=== PATIENT | male | born 1945 | race Caucasian/White ===

== ENCOUNTER 2018-12-29 09:11 | Emergency (ER) | payer MEDICARE ==
[2018-12-29 10:02] LABS: ADD MAN DIFF? NO
[2018-12-29 10:04] LABS: ABNORMAL IP MESSAGE 1; BASOPHILS % 0.3 % (0.0-2.0); EOSINOPHILS % 0.8 % (0.0-7.0); HEMATOCRIT 43.2 % (42.0-52.0); HEMOGLOBIN 13.9 g/dl (14.0-18.0); LYMPHOCYTES # 0.8 10^3/ul (0.8-2.9); LYMPHOCYTES % 20.4 % (15.0-51.0); MEAN CORPUSCULAR HEMOGLOBIN 25.1 pg (29.0-33.0); MEAN CORPUSCULAR HGB CONC 32.2 g/dl (32.0-37.0); MEAN CORPUSCULAR VOLUME 78.1 fl (82.0-101.0); MEAN PLATELET VOLUME 10.9 fl (7.4-10.4); MONOCYTE # 0.3 10^3/ul (0.3-0.9); MONOCYTES % 6.8 % (0.0-11.0); NEUTROPHIL # 2.9 10^3/ul (1.6-7.5); NEUTROPHILS % 71.4 % (39.0-77.0); PLATELET COUNT 99 10^3/UL (140-415); POSITIVE DIFF @See below; RED BLOOD COUNT 5.53 10^6/ul (4.70-6.10); RED CELL DISTRIBUTION WIDTH 14.2 % (11.5-14.5)
[2018-12-29 10:25] LABS: ANION GAP 13 (5-13); BLOOD UREA NITROGEN 17 mg/dl (7-20); CARBON DIOXIDE 28 mmol/L (21-31); CHLORIDE 100 mmol/L (97-110); CREATININE 0.96 mg/dl (0.61-1.24); GLUCOSE 175 mg/dl (70-220); POTASSIUM 4.4 mmol/L (3.5-5.1); SODIUM 141 mmol/L (135-144)
== END 2018-12-29 12:59 | disposition home or self-care (01) ==
LOC: E/R 09:11
DX: H53.2 Diplopia (principal); R40.2252 Coma scale, best verbal response, oriented, at arrival to emergency department; R40.2362 Coma scale, best motor response, obeys commands, at arrival to emergency department; R40.2142 Coma scale, eyes open, spontaneous, at arrival to emergency department; I10 Essential (primary) hypertension
CPT/HCPCS: 36415; 70553; 80048; 85025; 99284-25

== ENCOUNTER 2019-02-08 11:13 | Inpatient (IN) | payer MEDICARE, BC ==
[2019-02-08 11:44] LABS: ADD MAN DIFF? NO
[2019-02-08 11:45] LABS: WHITE BLOOD COUNT 4.6 10^3/ul (4.8-10.8)
[2019-02-08 11:45] LABS: BASOPHILS % 0.2 % (0.0-2.0); EOSINOPHILS % 0.4 % (0.0-7.0); HEMATOCRIT 41.3 % (42.0-52.0); HEMOGLOBIN 13.3 g/dl (14.0-18.0); LYMPHOCYTES # 0.8 10^3/ul (0.8-2.9); LYMPHOCYTES % 17.4 % (15.0-51.0); MEAN CORPUSCULAR HEMOGLOBIN 25.1 pg (29.0-33.0); MEAN CORPUSCULAR HGB CONC 32.2 g/dl (32.0-37.0); MEAN CORPUSCULAR VOLUME 77.9 fl (82.0-101.0); MEAN PLATELET VOLUME 11.2 fl (7.4-10.4); MONOCYTE # 0.3 10^3/ul (0.3-0.9); MONOCYTES % 6.7 % (0.0-11.0); NEUTROPHIL # 3.4 10^3/ul (1.6-7.5); NEUTROPHILS % 74.6 % (39.0-77.0); PLATELET COUNT 106 10^3/UL (140-415); RED CELL DISTRIBUTION WIDTH 15.1 % (11.5-14.5)
[2019-02-08 12:05] LABS: ALANINE AMINOTRANSFERASE 34 IU/L (13-69); ALBUMIN 4.6 g/dl (3.3-4.9); ALBUMIN/GLOBULIN RATIO 1.43; ALKALINE PHOSPHATASE 75 IU/L (42-121); ANION GAP 12 (5-13); ASPARTATE AMINO TRANSFERASE 32 IU/L (15-46); BLOOD UREA NITROGEN 18 mg/dl (7-20); CALCIUM 9.9 mg/dl (8.4-10.2); CARBON DIOXIDE 26 mmol/L (21-31); CHLORIDE 104 mmol/L (97-110); CHOL/HDL RATIO 2.8 RATIO; CHOLESTEROL 157 mg/dl (100-200); CREATINE KINASE 80 IU/L (23-200); CREATININE 0.92 mg/dl (0.61-1.24); GLUCOSE 149 mg/dl (70-220); HDL CHOLESTEROL 55 mg/dl (31-75); INR 1.04; LDL CHOLESTEROL,CALCULATED 92 mg/dl; POTASSIUM 4.2 mmol/L (3.5-5.1); PROTIME 13.7 Sec (11.9-14.9); PT RATIO 1.1; SODIUM 142 mmol/L (135-144); TOTAL PROTEIN 7.8 g/dl (6.1-8.1); TRIGLYCERIDES 51 mg/dl (0-149)
[2019-02-08 12:06] LABS: PARTIAL THROMBOPLASTIN TIME 29.5 Sec (23.0-35.0)
[2019-02-08] MEDS: SOD CHLORIDE 0.9% 100 ML (12:12)
[2019-02-08 12:13] LABS: HEMOGLOBIN A1C 6.3 % (0-5.9)
[2019-02-08] MEDS: IOHEXOL 100 ML (12:13)
[2019-02-08] MEDS: ASPIRIN 325 MG TAB PO (12:13)
[2019-02-08 12:16] LABS: CK INDEX 2.7; CK-MB 2.14 ng/ml (0.0-2.4)
[2019-02-08 12:22] LABS: TROPONIN-I 0.248 ng/ml (0.000-0.120)
[2019-02-08 12:31] LABS: ETHANOL < 10.0 mg/dl (0-0)
[2019-02-08 16:12] LABS: ADD UMIC NO; UR ASCORBIC ACID 40 mg/dL (NEGATIVE); UR BILIRUBIN (Dip) NEGATIVE (NEGATIVE); UR BLOOD (Dip) NEGATIVE (NEGATIVE); UR CLARITY CLEAR (CLEAR); UR COLOR YELLOW (YELLOW); UR GLUCOSE (Dip) NEGATIVE (NEGATIVE); UR KETONES (Dip) NEGATIVE (NEGATIVE); UR LEUKOCYTE ESTERASE (Dip) NEGATIVE Leu/ul (NEGATIVE); UR NITRITE (Dip) NEGATIVE (NEGATIVE); UR SPECIFIC GRAVITY (Dip) 1.056 (1.003-1.030); UR TOTAL PROTEIN (Dip) NEGATIVE (NEGATIVE); UR UROBILINOGEN (Dip) NEGATIVE (NEGATIVE)
[2019-02-08 16:34] LABS: AMPHETAMINE/METHAMPHETAMINE Negative (NEGATIVE); BARBITURATES Negative (NEGATIVE); BENZODIAZEPINES Negative (NEGATIVE); CANNABINOIDS Negative (NEGATIVE); COCAINE Negative (NEGATIVE); OPIATES Negative (NEGATIVE)
[2019-02-08 19:39] LABS: TROPONIN-I 0.374 ng/ml (0.000-0.120)
[2019-02-08] MEDS ORDERED: NITROGLYCERIN (SL) 0.4 MG TAB SL (21:00)
[2019-02-08] MEDS: CLOPIDOGREL 75 MG TAB PO (22:42)
[2019-02-09 06:53] LABS: ADD MAN DIFF? NO
[2019-02-09 07:00] LABS: WHITE BLOOD COUNT 4.1 10^3/ul (4.8-10.8)
[2019-02-09 07:00] LABS: ABNORMAL IP MESSAGE 1; BASOPHILS % 0.2 % (0.0-2.0); EOSINOPHILS % 0.7 % (0.0-7.0); HEMATOCRIT 40.4 % (42.0-52.0); HEMOGLOBIN 13.1 g/dl (14.0-18.0); LYMPHOCYTES # 1.1 10^3/ul (0.8-2.9); LYMPHOCYTES % 25.9 % (15.0-51.0); MEAN CORPUSCULAR HEMOGLOBIN 25.3 pg (29.0-33.0); MEAN CORPUSCULAR HGB CONC 32.4 g/dl (32.0-37.0); MEAN PLATELET VOLUME 11.6 fl (7.4-10.4); MONOCYTE # 0.4 10^3/ul (0.3-0.9); MONOCYTES % 9.5 % (0.0-11.0); NEUTROPHIL # 2.6 10^3/ul (1.6-7.5); NEUTROPHILS % 63.5 % (39.0-77.0); PLATELET COUNT 98 10^3/UL (140-415); POSITIVE DIFF @See below; RED BLOOD COUNT 5.18 10^6/ul (4.70-6.10); RED CELL DISTRIBUTION WIDTH 15.4 % (11.5-14.5)
[2019-02-09 07:24] LABS: ALANINE AMINOTRANSFERASE 33 IU/L (13-69); ALBUMIN 4.3 g/dl (3.3-4.9); ALBUMIN/GLOBULIN RATIO 1.48; ALKALINE PHOSPHATASE 70 IU/L (42-121); ANION GAP 7 (5-13); ASPARTATE AMINO TRANSFERASE 34 IU/L (15-46); BILIRUBIN,INDIRECT 1.2 mg/dl (0-1.1); BILIRUBIN,TOTAL 1.2 mg/dl (0.2-1.3); BLOOD UREA NITROGEN 15 mg/dl (7-20); CALCIUM 9.5 mg/dl (8.4-10.2); CARBON DIOXIDE 28 mmol/L (21-31); CHLORIDE 105 mmol/L (97-110); CHOL/HDL RATIO 2.9 RATIO; CHOLESTEROL 149 mg/dl (100-200); CREATININE 0.97 mg/dl (0.61-1.24); GLUCOSE 135 mg/dl (70-220); HDL CHOLESTEROL 51 mg/dl (31-75); LDL CHOLESTEROL,CALCULATED 87 mg/dl; POTASSIUM 4.3 mmol/L (3.5-5.1); SODIUM 140 mmol/L (135-144); TOTAL PROTEIN 7.2 g/dl (6.1-8.1); TRIGLYCERIDES 57 mg/dl (0-149)
[2019-02-09 07:36] LABS: TROPONIN-I 0.934 ng/ml (0.000-0.120)
[2019-02-09] MEDS: CLOPIDOGREL 75 MG TAB PO (08:55)
[2019-02-09] MEDS: AMLODIPINE 5 MG TAB PO (08:55)
[2019-02-09 09:15] LABS: TROPONIN-I 0.821 ng/ml (0.000-0.120)
[2019-02-09] MEDS: HEPARIN 1000 UNITS/ML 10 ML INJ IV (11:05)
[2019-02-09] MEDS: HEPARIN 25000 UNITS/250 ML 250 ML IV (11:06)
[2019-02-09] MEDS ORDERED: HEPARIN 1000 UNITS/ML 10 ML INJ (14:27)
[2019-02-09] MEDS ORDERED: LIDOCAINE 1% (MDV) 20 ML INJ (14:27)
[2019-02-09] MEDS ORDERED: VERAPAMIL 5 MG INJ (14:27)
[2019-02-09] MEDS ORDERED: IODIXANOL LOCM 100 ML BTL ×3 (14:27→15:28)
[2019-02-09] MEDS ORDERED: FENTAnyl 50 MCG/ML VIAL (14:27)
[2019-02-09] MEDS ORDERED: NITROGLYCERIN (IC) 100 MCG/ML INJ (14:27)
[2019-02-09] MEDS ORDERED: MIDAZOLAM 1 MG/ML 2 ML INJ (14:27)
[2019-02-09] MEDS: SOD CHLORIDE 0.9% 1,000 ML IV (15:43)
[2019-02-09] MEDS ORDERED: AL HYDROX/MG HYDROX/SIMETH 30 ML CUP PO (16:00)
[2019-02-09] MEDS ORDERED: ONDANSETRON 4 MG INJ IV (16:00)
[2019-02-09] MEDS: WARFARIN 5 MG TAB NGT (17:14)
[2019-02-09 17:50] LABS: INR 1.08; PROTIME 14.1 Sec (11.9-14.9); PT RATIO 1.1
[2019-02-09] MEDS: ATORVASTATIN 80 MG TAB PO (20:52)
[2019-02-09] MEDS: ENOXAPARIN 100 MG/ML SYG SC (20:55)
[2019-02-10] MEDS: ZOLPIDEM 5 MG TAB PO (00:23)
[2019-02-10] MEDS: AMLODIPINE 5 MG TAB PO (08:56)
[2019-02-10] MEDS: CLOPIDOGREL 75 MG TAB PO (08:56)
[2019-02-10] MEDS: ENOXAPARIN 100 MG/ML SYG SC ×2 (09:17→20:41)
[2019-02-10 12:13] LABS: INR 1.14; PROTIME 14.7 Sec (11.9-14.9); PT RATIO 1.1
[2019-02-10] MEDS: WARFARIN 7.5 MG TAB PO (17:31)
[2019-02-10] MEDS: ATORVASTATIN 80 MG TAB PO (20:38)
[2019-02-11 06:59] LABS: ADD MAN DIFF? NO
[2019-02-11 07:07] LABS: BASOPHILS % 0.2 % (0.0-2.0); EOSINOPHILS # 0.1 10^3/ul (0.0-0.5); EOSINOPHILS % 1.2 % (0.0-7.0); HEMATOCRIT 40.1 % (42.0-52.0); HEMOGLOBIN 12.8 g/dl (14.0-18.0); LYMPHOCYTES % 23.4 % (15.0-51.0); MEAN CORPUSCULAR HEMOGLOBIN 25.2 pg (29.0-33.0); MEAN CORPUSCULAR HGB CONC 31.9 g/dl (32.0-37.0); MEAN CORPUSCULAR VOLUME 78.9 fl (82.0-101.0); MONOCYTE # 0.3 10^3/ul (0.3-0.9); MONOCYTES % 7.5 % (0.0-11.0); NEUTROPHIL # 2.9 10^3/ul (1.6-7.5); NEUTROPHILS % 67.5 % (39.0-77.0); PLATELET COUNT 109 10^3/UL (140-415); RED BLOOD COUNT 5.08 10^6/ul (4.70-6.10); RED CELL DISTRIBUTION WIDTH 15.1 % (11.5-14.5)
[2019-02-11 07:07] LABS: WHITE BLOOD COUNT 4.3 10^3/ul (4.8-10.8)
[2019-02-11 07:22] LABS: INR 1.24; PROTIME 15.7 Sec (11.9-14.9); PT RATIO 1.2
[2019-02-11 07:32] LABS: ANION GAP 12 (5-13); BLOOD UREA NITROGEN 16 mg/dl (7-20); CALCIUM 9.4 mg/dl (8.4-10.2); CARBON DIOXIDE 24 mmol/L (21-31); CHLORIDE 107 mmol/L (97-110); CREATININE 0.95 mg/dl (0.61-1.24); GLUCOSE 181 mg/dl (70-220); POTASSIUM 4.8 mmol/L (3.5-5.1); SODIUM 143 mmol/L (135-144)
[2019-02-11] MEDS: AMLODIPINE 5 MG TAB PO (08:52)
[2019-02-11] MEDS: ENOXAPARIN 100 MG/ML SYG SC ×2 (08:57→20:43)
[2019-02-11] MEDS: LORAZEPAM 0.5 MG TAB PO ×2 (14:42→22:05)
[2019-02-11] MEDS: MAGNESIUM HYDROXIDE 30ML CUP PO (15:18)
[2019-02-11] MEDS: WARFARIN 7.5 MG TAB PO (17:15)
[2019-02-11] MEDS: ATORVASTATIN 80 MG TAB PO (20:28)
[2019-02-12 06:35] LABS: ADD MAN DIFF? NO
[2019-02-12 06:53] LABS: ABNORMAL IP MESSAGE 1; BASOPHILS % 0.3 % (0.0-2.0); EOSINOPHILS % 1.2 % (0.0-7.0); HEMOGLOBIN 11.8 g/dl (14.0-18.0); LYMPHOCYTES # 0.9 10^3/ul (0.8-2.9); LYMPHOCYTES % 26.7 % (15.0-51.0); MEAN CORPUSCULAR HEMOGLOBIN 25.1 pg (29.0-33.0); MEAN CORPUSCULAR HGB CONC 31.9 g/dl (32.0-37.0); MEAN CORPUSCULAR VOLUME 78.7 fl (82.0-101.0); MONOCYTE # 0.3 10^3/ul (0.3-0.9); MONOCYTES % 9.4 % (0.0-11.0); NEUTROPHIL # 2.1 10^3/ul (1.6-7.5); NEUTROPHILS % 62.1 % (39.0-77.0); PLATELET COUNT 89 10^3/UL (140-415); POSITIVE DIFF @See below; RED CELL DISTRIBUTION WIDTH 14.8 % (11.5-14.5)
[2019-02-12 06:53] LABS: WHITE BLOOD COUNT 3.3 10^3/ul (4.8-10.8)
[2019-02-12 06:59] LABS: INR 1.85; PROTIME 21.4 Sec (11.9-14.9); PT RATIO 1.7
[2019-02-12 07:01] LABS: ANION GAP 6 (5-13); BLOOD UREA NITROGEN 18 mg/dl (7-20); CARBON DIOXIDE 28 mmol/L (21-31); CHLORIDE 108 mmol/L (97-110); CREATININE 0.87 mg/dl (0.61-1.24); GLUCOSE 131 mg/dl (70-220); POTASSIUM 4.2 mmol/L (3.5-5.1); SODIUM 142 mmol/L (135-144)
[2019-02-12] MEDS: DOCUSATE SODIUM 100 MG CAP PO (08:02)
[2019-02-12] MEDS: AMLODIPINE 5 MG TAB PO (08:02)
[2019-02-12] MEDS: ENOXAPARIN 100 MG/ML SYG SC ×2 (08:16→21:33)
[2019-02-12] MEDS: WARFARIN 5 MG TAB PO (16:58)
[2019-02-12] MEDS: ATORVASTATIN 80 MG TAB PO (21:01)
[2019-02-12] MEDS: LORAZEPAM 0.5 MG TAB PO (22:32)
[2019-02-13 06:22] LABS: ADD MAN DIFF? NO
[2019-02-13 06:26] LABS: BASOPHILS % 0.5 % (0.0-2.0); EOSINOPHILS # 0.1 10^3/ul (0.0-0.5); EOSINOPHILS % 1.3 % (0.0-7.0); HEMATOCRIT 39.9 % (42.0-52.0); HEMOGLOBIN 12.7 g/dl (14.0-18.0); LYMPHOCYTES % 26.4 % (15.0-51.0); MEAN CORPUSCULAR HEMOGLOBIN 25.3 pg (29.0-33.0); MEAN CORPUSCULAR HGB CONC 31.8 g/dl (32.0-37.0); MEAN CORPUSCULAR VOLUME 79.5 fl (82.0-101.0); MEAN PLATELET VOLUME 10.9 fl (7.4-10.4); MONOCYTE # 0.3 10^3/ul (0.3-0.9); MONOCYTES % 7.5 % (0.0-11.0); NEUTROPHIL # 2.5 10^3/ul (1.6-7.5); PLATELET COUNT 100 10^3/UL (140-415); RED BLOOD COUNT 5.02 10^6/ul (4.70-6.10)
[2019-02-13 06:26] LABS: WHITE BLOOD COUNT 3.9 10^3/ul (4.8-10.8)
[2019-02-13 06:44] LABS: INR 2.12; PROTIME 23.8 Sec (11.9-14.9); PT RATIO 1.9
[2019-02-13] MEDS: DOCUSATE SODIUM 100 MG CAP PO (08:21)
[2019-02-13] MEDS: AMLODIPINE 5 MG TAB PO (08:21)
[2019-02-13] MEDS: ENOXAPARIN 100 MG/ML SYG SC (08:24)
[2019-02-13] MEDS: WARFARIN 3 MG TAB PO (17:06)
[2019-02-13] MEDS: ATORVASTATIN 80 MG TAB PO (20:46)
[2019-02-13] MEDS: LORAZEPAM 0.5 MG TAB PO (21:56)
[2019-02-14] MEDS: DOCUSATE SODIUM 100 MG CAP PO (08:26)
[2019-02-14] MEDS: AMLODIPINE 5 MG TAB PO (08:26)
[2019-02-14 08:51] LABS: ADD MAN DIFF? NO
[2019-02-14 08:54] LABS: WHITE BLOOD COUNT 3.4 10^3/ul (4.8-10.8)
[2019-02-14 08:54] LABS: ABNORMAL IP MESSAGE 1; BASOPHILS % 0.6 % (0.0-2.0); EOSINOPHILS % 0.9 % (0.0-7.0); HEMATOCRIT 38.3 % (42.0-52.0); HEMOGLOBIN 12.3 g/dl (14.0-18.0); LYMPHOCYTES # 0.7 10^3/ul (0.8-2.9); LYMPHOCYTES % 20.5 % (15.0-51.0); MEAN CORPUSCULAR HEMOGLOBIN 25.5 pg (29.0-33.0); MEAN CORPUSCULAR HGB CONC 32.1 g/dl (32.0-37.0); MEAN CORPUSCULAR VOLUME 79.3 fl (82.0-101.0); MEAN PLATELET VOLUME 11.9 fl (7.4-10.4); MONOCYTE # 0.2 10^3/ul (0.3-0.9); MONOCYTES % 6.8 % (0.0-11.0); NEUTROPHIL # 2.4 10^3/ul (1.6-7.5); NEUTROPHILS % 70.9 % (39.0-77.0); PLATELET COUNT 94 10^3/UL (140-415); POSITIVE DIFF @See below; RED BLOOD COUNT 4.83 10^6/ul (4.70-6.10); RED CELL DISTRIBUTION WIDTH 14.8 % (11.5-14.5)
[2019-02-14 09:17] LABS: INR 2.28; PROTIME 25.2 Sec (11.9-14.9)
== END 2019-02-14 09:31 | disposition home or self-care (01) | DRG 64 ==
LOC: TEL 02-10 10:44 → E/R 11:13 → TEL 02-09 16:22
PROC: 4A023N7 Measurement of Cardiac Sampling and Pressure, Left Heart, Percutaneous Approach (ICD-10-PCS; principal; 2019-02-09 14:14)
PROC: B2011ZZ Plain Radiography of Multiple Coronary Arteries using Low Osmolar Contrast (ICD-10-PCS; 2019-02-09 14:14)
DX: I63.89 Other cerebral infarction (principal); I21.A1 Myocardial infarction type 2; I10 Essential (primary) hypertension; E11.9 Type 2 diabetes mellitus without complications; I35.1 Nonrheumatic aortic (valve) insufficiency; I48.91 Unspecified atrial fibrillation; R29.810 Facial weakness; R29.702 NIHSS score 2; Z86.73 Personal history of transient ischemic attack (TIA), and cerebral infarction without residual deficits; R47.81 Slurred speech; K59.00 Constipation, unspecified
CPT/HCPCS: 36415; 70450; 70496; 70498; 70551; 71045; 80048; 80053; 80061; 80307; 81003; 82550; 82553; 82962; 83036; 83735; 84484; 85025; 85610; 85730; 92526; 92610; 93005; 93306; 93458; 99291-25